=== PATIENT | female | born 1955 | race Caucasian/White ===

== ENCOUNTER → 2017-02-26 | Outpatient (CLI) | payer OTHER ==
[~2017-02-26] MED LIST: ANTIVERT/2525 MG PO; AUGMENTIN 875875 MG PO; BLACK COHOSH; LEVAQUIN750 M1 PO; MOTRIN600 MG PO; MULTIVITAMIN FO1 CAP; OMEPRAZOLE20 MG PO; ONE DAILY WOME1 EACH PO; ROBITUSSIN AC 110 ML PO; SYNTHROID25 MCG PO; VICODIN 5/500 505 MG PO
== END | disposition home or self-care (01) ==
LOC: US 07:11
DX: K76.0 Fatty (change of) liver, not elsewhere classified (principal)

== ENCOUNTER 2017-05-11 18:51 | Emergency (ER) | payer OTHER ==
[~2017-05-11] VITALS: Ht 167.6 cm; Wt 68.9 kg
[2017-05-11] MEDS ORDERED: PROAIR HFA8.5 GM INH (21:28)
[2017-05-11] MEDS ORDERED: TESSALON PERLE100 M1 PO (21:28)
== END 2017-05-11 21:13 ==
LOC: ED 18:51
DX: B34.9 Viral infection, unspecified (principal); F17.210 Nicotine dependence, cigarettes, uncomplicated; Z87.01 Personal history of pneumonia (recurrent); Z90.49 Acquired absence of other specified parts of digestive tract; Z98.890 Other specified postprocedural states

== ENCOUNTER → 2017-06-07 | Outpatient (CLI) | payer OTHER ==
[~2017-06-07] MED LIST changes: +PROAIR HFA8.5 GM INH; +TESSALON PERLE100 M1 PO
== END | disposition home or self-care (01) ==
LOC: NM 06-06 07:00
DX: R10.11 Right upper quadrant pain (principal); R11.0 Nausea

== ENCOUNTER 2018-04-17 16:32 | Inpatient (IN) | payer MEDICARE ==
[~2018-04-17] VITALS: Ht 165.1 cm; Wt 68.7 kg
--- NOTE | ~2018-04-17 | PR ---
[place], [place] PROGRESS NOTE NAME: LEXX JUDGE UNIT #: [id number] ROOM: 409 DOCTOR: ISABELL MEANS MD BIRTHDATE: [birth year] DOS: 04/19/2018 CARDIOLOGY PROGRESS NOTE SUBJECTIVE: The patient was seen in the Cardiology Department just prior to her stress test today, 04/19/2018. She is a 63-year-old woman who was hospitalized for evaluation of a mechanical fall. She did admit to episodes of chest discomfort, which have been occurring intermittently for several months. She states that these episodes can come on at rest or with minimal exertion, but not reliably so. The symptoms last 5-10 minutes and resolve spontaneously. There is nothing that she can do to bring on the symptoms or alleviate them. Since she has been in the hospital, her electrocardiograms have shown no acute changes and her troponin levels have been entirely normal. PHYSICAL EXAMINATION: VITAL SIGNS: Today her pulse is 70 and regular, blood pressure is 130/59. She is afebrile. She weighs 68.7 kg and has a body mass index of 25.2. NECK: Supple. She has no jugular distention. Carotids are full without bruits. LUNGS: Respirations are unlabored. Chest has decreased breath sounds at the bases, but is otherwise clear. There is no presacral edema or chest wall tenderness. HEART: Has a regular rhythm with an S4 gallop, but no S3. There is no significant murmur. ABDOMEN: Soft. EXTREMITIES: Showed no edema. DIAGNOSTIC STUDIES: An echocardiogram done on 04/18/2018 showed normal left ventricular size, wall motion and systolic function with ejection fraction 65%. There is stage 1 diastolic relaxation abnormality, which is normal for age. Right ventricular size and function are normal. No significant abnormality of valve structure or function is present. IMPRESSION: 1. Mechanical fall. The patient denies syncope. 2. Atypical chest pain. PLAN: We will proceed with a pharmacologic stress test today. Further recommendations will depend upon the results of the stress test. [place], [place] PROGRESS NOTE NAME: LEXX JUDGE UNIT #: [id number] ROOM: 409 DOCTOR: ISABELL MEANS MD BIRTHDATE: [birth year] ISABELL MEANS MD CM:PNTRANS [id number] ISABELL MEANS MD 04/19/18 1100 interface
--- NOTE | ~2018-04-17 | EKG ---
[place], [place] ELECTROCARDIOGRAM REPORT NAME: LEXX JUDGE UNIT #: [id number] ROOM: 409 DOCTOR: ERIC DRAFT REPORT BIRTHDATE: [birth year] [facility] Test Date: 2018-04-17 Test Time: 18:03:45 Pat Name: LEXX JUDGE Department: Room: 409 Gender: F Client Care Consultant: Sheryl Hobbs : 1955 Requested By: REJI BURNETTE Order Number: [id number] Reading MD: Kanika Smiley MD Measurements Intervals [place] Rate: 69 P: 45 GA: 186 QRS: -57 QRSD: 94 T: 38 QT: 420 QTc: 450 Interpretive Statements Sinus rhythm Abnormal R-wave progression, late transition LAHB Baseline wander in lead(s) V3 Electronically Signed On 04-18-2018 3:22:49 PST by Kanika Smiley MD CM:EKGRPT:ELECTROCARDIOGRAM REPORT [id number] REJI EVANGELISTA DRAFT REPORT REJI BURNETTE DO
[2018-04-17 16:33] VITALS: BP 154/89
[2018-04-17 17:28] LABS: BASO # 0.1 10*3/uL (0.0-0.1); BASO % 1.1 % (0.0-1.0); EOS # 0.2 10*3/uL (0.0-0.4); EOS % 2.5 % (1.0-4.0); HEMATOCRIT 37.3 % (37.0-47.0); HEMOGLOBIN 12.8 g/dl (12.0-16.0); LYMPH # 3.3 10*3/uL (1.3-4.4); MEAN CELL VOLUME 91.9 fl (81.0-99.0); MEAN CORPUSCULAR HGB 31.5 pg (27.0-31.0); MEAN CORPUSCULAR HGB CONC 34.3 g/dl (33.0-37.0); MEAN PLATELET VOLUME 9.8 fl (9.6-12.3); MONO # 0.7 10*3/uL (0.1-1.0); MONO % 7.8 % (3.0-9.0); NEUT # 4.4 10*3/uL (2.3-7.9); NEUT % 49.8 % (47.0-73.0); PLATELET COUNT AUTOMATED 255 10*3/uL (130-400); RED BLOOD COUNT 4.06 10*6/uL (4.10-5.10); RED CELL DISTRI WIDTH 12.4 % (0-14.5); WHITE BLOOD COUNT 8.8 10*3/uL (4.8-10.8)
[2018-04-17 17:54] LABS: ALBUMIN 3.8 gm/dl (3.1-4.5); ALKALINE PHOSPHATASE 54 U/L (45-117); BUN 5 mg/dl (7-24); CHLORIDE 95 mmol/L (98-107); CREATININE 0.64 mg/dL (0.55-1.02); POTASSIUM 3.4 mmol/L (3.5-5.1); SGOT/AST 19 IU/L (3-35); SGPT/ALT 18 U/L (12-78); SODIUM 130 mmol/L (136-145); TOTAL PROTEIN 7.5 gm/dL (6.4-8.2)
[2018-04-17 17:55] LABS: TROPONIN I < 0.015 ng/ml (<0.045)
[2018-04-17 18:46] LABS: BILIRUBIN NEGATIVE (NEGATIVE); BLOOD NEGATIVE (NEGATIVE); CLARITY CLEAR (CLEAR); COLOR YELLOW (YELLOW); GLUCOSE NEGATIVE (NEGATIVE); KETONE NEGATIVE (NEGATIVE); LEUKO ESTERASE NEGATIVE (NEGATIVE); NITRITE NEGATIVE (NEGATIVE); PH 5.5 (5.0-9.0); UROBILINOGEN 0.2 E.U./dl (0.2-1.0)
[2018-04-17 18:51] LABS: BACTERIA 1+
[2018-04-17 20:30] VITALS: BP 137/70
[2018-04-18] VITALS: BP 127/65
[2018-04-18 06:40] LABS: BASO # 0.1 10*3/uL (0.0-0.1); BASO % 0.9 % (0.0-1.0); EOS # 0.2 10*3/uL (0.0-0.4); EOS % 2.4 % (1.0-4.0); HEMATOCRIT 38.2 % (37.0-47.0); HEMOGLOBIN 13.2 g/dl (12.0-16.0); LYMPH % 19.3 % (27.0-41.0); MEAN CELL VOLUME 89.9 fl (81.0-99.0); MEAN CORPUSCULAR HGB 31.1 pg (27.0-31.0); MEAN CORPUSCULAR HGB CONC 34.6 g/dl (33.0-37.0); MEAN PLATELET VOLUME 10.7 fl (9.6-12.3); MONO # 0.8 10*3/uL (0.1-1.0); MONO % 7.7 % (3.0-9.0); NEUT % 69.1 % (47.0-73.0); PLATELET COUNT AUTOMATED 276 10*3/uL (130-400); RED BLOOD COUNT 4.25 10*6/uL (4.10-5.10); RED CELL DISTRI WIDTH 12.3 % (0-14.5); WHITE BLOOD COUNT 10.2 10*3/uL (4.8-10.8)
[2018-04-18 07:10] LABS: BUN 5 mg/dl (7-24); CHLORIDE 100 mmol/L (98-107); POTASSIUM 4.2 mmol/L (3.5-5.1); SODIUM 131 mmol/L (136-145)
[2018-04-18 07:11] LABS: ACT PARTIAL THROMBO TIME 26.2 SECONDS (20.8-31.5)
[2018-04-18 07:24] LABS: CHOLESTEROL 169 mg/dL (<200); CREATININE 0.58 mg/dL (0.55-1.02); FREE T4 0.71 ng/dl (0.76-1.46); HDL CHOLESTEROL 77 mg/dl (40-60); LDL CHOLESTEROL 70 mg/dL (9-159); PHOSPHOROUS 3.3 mg/dL (2.5-4.9); TRIGLYCERIDES 108 mg/dl (<150); VLDL CHOLESTEROL 22 mg/dL (6-40)
[2018-04-18 07:57] LABS: VITAMIN D, 25-HYDROXY 43.5 ng/mL (30-100)
[2018-04-18 12:00] VITALS: BP 143/62
[2018-04-18 16:00] VITALS: BP 134/70
[2018-04-18 20:00] VITALS: BP 124/63
[2018-04-19] VITALS: BP 130/59
[2018-04-19 06:44] LABS: BASO # 0.1 10*3/uL (0.0-0.1); BASO % 0.8 % (0.0-1.0); EOS # 0.2 10*3/uL (0.0-0.4); EOS % 3.2 % (1.0-4.0); HEMATOCRIT 40.7 % (37.0-47.0); HEMOGLOBIN 13.6 g/dl (12.0-16.0); LYMPH # 2.4 10*3/uL (1.3-4.4); MEAN CORPUSCULAR HGB 31.1 pg (27.0-31.0); MEAN CORPUSCULAR HGB CONC 33.4 g/dl (33.0-37.0); MEAN PLATELET VOLUME 10.9 fl (9.6-12.3); MONO # 0.9 10*3/uL (0.1-1.0); MONO % 11.6 % (3.0-9.0); NEUT # 3.8 10*3/uL (2.3-7.9); NEUT % 51.9 % (47.0-73.0); PLATELET COUNT AUTOMATED 272 10*3/uL (130-400); RED BLOOD COUNT 4.37 10*6/uL (4.10-5.10); RED CELL DISTRI WIDTH 12.6 % (0-14.5); WHITE BLOOD COUNT 7.4 10*3/uL (4.8-10.8)
[2018-04-19 06:47] LABS: MEAN CELL VOLUME 93.1 fl (81.0-99.0)
[2018-04-19 06:59] LABS: CHLORIDE 107 mmol/L (98-107); SODIUM 139 mmol/L (136-145)
[2018-04-19 07:12] LABS: ALBUMIN 3.6 gm/dl (3.1-4.5); ALKALINE PHOSPHATASE 54 U/L (45-117); BUN 9 mg/dl (7-24); SGOT/AST 10 IU/L (3-35); SGPT/ALT 19 U/L (12-78); TOTAL PROTEIN 7.3 gm/dL (6.4-8.2)
[2018-04-19 12:00] VITALS: BP 119/56
[2018-04-19 16:00] VITALS: BP 115/65
[2018-04-19 20:00] VITALS: BP 140/71
[2018-04-20] VITALS: BP 127/65
[2018-04-20 06:27] LABS: BASO # 0.1 10*3/uL (0.0-0.1); BASO % 1.2 % (0.0-1.0); EOS # 0.5 10*3/uL (0.0-0.4); EOS % 6.3 % (1.0-4.0); HEMOGLOBIN 13.1 g/dl (12.0-16.0); LYMPH # 2.6 10*3/uL (1.3-4.4); LYMPH % 32.3 % (27.0-41.0); MEAN CELL VOLUME 94.3 fl (81.0-99.0); MEAN CORPUSCULAR HGB 30.9 pg (27.0-31.0); MEAN CORPUSCULAR HGB CONC 32.8 g/dl (33.0-37.0); MEAN PLATELET VOLUME 11.1 fl (9.6-12.3); MONO % 12.5 % (3.0-9.0); NEUT # 3.8 10*3/uL (2.3-7.9); NEUT % 47.1 % (47.0-73.0); PLATELET COUNT AUTOMATED 250 10*3/uL (130-400); RED BLOOD COUNT 4.24 10*6/uL (4.10-5.10); RED CELL DISTRI WIDTH 12.8 % (0-14.5); WHITE BLOOD COUNT 8.1 10*3/uL (4.8-10.8)
[2018-04-20 06:48] LABS: ALBUMIN 3.7 gm/dl (3.1-4.5); ALKALINE PHOSPHATASE 54 U/L (45-117); BUN 12 mg/dl (7-24); CHLORIDE 105 mmol/L (98-107); CREATININE 0.72 mg/dL (0.55-1.02); POTASSIUM 4.1 mmol/L (3.5-5.1); SGOT/AST 16 IU/L (3-35); SGPT/ALT 19 U/L (12-78); SODIUM 137 mmol/L (136-145); TOTAL PROTEIN 6.9 gm/dL (6.4-8.2)
== END 2018-04-20 08:35 | disposition left against medical advice (07) | DRG 605 ==
LOC: ED 16:32 → 4E 19:07 → EDHOLD 19:07 → 4E 19:59
PROVIDERS: Internal Medicine; Internal Medicine Nephrology
PROC: 3E073KZ Introduction of Other Diagnostic Substance into Coronary Artery, Percutaneous Approach (ICD-10-PCS; principal; 2018-04-19)
PROC: 4A02XM4 Measurement of Cardiac Total Activity, External Approach (ICD-10-PCS; principal; 2018-04-19)
DX: S20.212A Contusion of left front wall of thorax, initial encounter (principal); E87.1 Hypo-osmolality and hyponatremia; E83.51 Hypocalcemia; E87.6 Hypokalemia; E87.8 Other disorders of electrolyte and fluid balance, not elsewhere classified; E66.3 Overweight; R07.89 Other chest pain; Z53.21 Procedure and treatment not carried out due to patient leaving prior to being seen by health care provider; F10.10 Alcohol abuse, uncomplicated; F17.210 Nicotine dependence, cigarettes, uncomplicated; E03.9 Hypothyroidism, unspecified; W18.30XA Fall on same level, unspecified, initial encounter; Y93.89 Activity, other specified; Y92.098 Other place in other non-institutional residence as the place of occurrence of the external cause; Y99.8 Other external cause status; Z90.49 Acquired absence of other specified parts of digestive tract; Z84.1 Family history of disorders of kidney and ureter; Z83.3 Family history of diabetes mellitus; Z80.3 Family history of malignant neoplasm of breast; Z80.8 Family history of malignant neoplasm of other organs or systems; Z71.6 Tobacco abuse counseling; Z79.899 Other long term (current) drug therapy

== ENCOUNTER 2019-03-06 09:22 | Emergency (ER) | payer MEDICARE ==
[~2019-03-06] VITALS: Wt 68.0 kg
[2019-03-06 10:17] LABS: BASO # 0.1 10*3/uL (0.0-0.1); BASO % 0.6 % (0.0-1.0); EOS # 0.1 10*3/uL (0.0-0.4); HEMATOCRIT 40.5 % (37.0-47.0); HEMOGLOBIN 13.4 g/dl (12.0-16.0); LYMPH # 2.8 10*3/uL (1.3-4.4); LYMPH % 29.9 % (27.0-41.0); MEAN CELL VOLUME 93.5 fl (81.0-99.0); MEAN CORPUSCULAR HGB 30.9 pg (27.0-31.0); MEAN CORPUSCULAR HGB CONC 33.1 g/dl (33.0-37.0); MEAN PLATELET VOLUME 10.8 fl (9.6-12.3); MONO # 0.7 10*3/uL (0.1-1.0); NEUT # 5.6 10*3/uL (2.3-7.9); NEUT % 60.7 % (47.0-73.0); PLATELET COUNT AUTOMATED 332 10*3/uL (130-400); RED BLOOD COUNT 4.33 10*6/uL (4.10-5.10); RED CELL DISTRI WIDTH 11.9 % (0-14.5); WHITE BLOOD COUNT 9.3 10*3/uL (4.8-10.8)
[2019-03-06 10:20] LABS: ALBUMIN 4.3 gm/dl (3.1-4.5); ALKALINE PHOSPHATASE 84 U/L (45-117); BUN 8 mg/dl (7-24); CHLORIDE 104 mmol/L (98-107); LIPASE 109 U/L (73-393); POTASSIUM 3.7 mmol/L (3.5-5.1); SGOT/AST 13 IU/L (3-35); SGPT/ALT 18 U/L (12-78); SODIUM 134 mmol/L (136-145); TOTAL PROTEIN 8.3 gm/dL (6.4-8.2)
[2019-03-06] MEDS ORDERED: CIPRO500 MG PO (12:56)
[2019-03-06] MEDS ORDERED: FLAGYL500 MG PO (12:56)
== END 2019-03-06 13:07 | disposition home or self-care (01) ==
LOC: ED 09:22
PROVIDERS: Emergency Medicine
DX: K57.32 Diverticulitis of large intestine without perforation or abscess without bleeding (principal); R30.0 Dysuria; M54.5 Low back pain; M25.551 Pain in right hip; R11.0 Nausea; E03.9 Hypothyroidism, unspecified; G40.909 Epilepsy, unspecified, not intractable, without status epilepticus; F17.200 Nicotine dependence, unspecified, uncomplicated

== ENCOUNTER 2019-03-14 11:14 | Inpatient (IN) | payer MEDICARE ==
[~2019-03-14] VITALS: Ht 167.6 cm; Wt 66.0 kg
--- NOTE | ~2019-03-14 | CON ---
[place], [place] REPORT OF CONSULTATION NAME: LEXX JUDGE UNIT #: [id number] ROOM: 412 DOCTOR: LENIN PEREZ MD BIRTHDATE: [birth year] DOS: 03/14/2019 HISTORY OF PRESENT ILLNESS: A 64-year-old patient who has presented with chief complaint of abdominal pain. Apparently, she has been on a trial of Flagyl and ciprofloxacin. She develops diarrhea. She has stopped taking the medication she subsequently developed dysuria and polyuria at the same time. She had to be admitted for definitive evaluation through the Emergency Room, was suspected that she may have a UTI; therefore a panel of blood work was done. White blood cell at that time was 11, H and H of 13 and 39, differential within normal limit. Comprehensive metabolic panel: GFR greater than 60. Electrolyte balance, liver function test normal. Urinalysis, trace of bacteria was seen and some blood trace in the urine. Lactic acid was normal. PAST MEDICAL HISTORY: Associated with diverticulosis, diverticulitis, and hypothyroidism. PAST SURGICAL HISTORY: Appendectomy, cataracts, and ovarian cystectomy. SOCIAL HISTORY: About 6-pack of beer daily and 1 pack smoker. FAMILY HISTORY: Noncontributory. ALLERGIES: No known medications. REVIEW OF SYSTEMS: HEENT: Denies double vision, blurred vision. RESPIRATORY: Denies acute shortness of breath. CARDIOVASCULAR: Denies acute chest pain. DIGESTIVE SYSTEM: Abdominal pain. GENITOURINARY: Frequency of urine and dysuria. PHYSICAL EXAMINATION: GENERAL: Appears to be stable, nontoxic patient. HEENT: Head normocephalic, nontraumatic. Mouth and buccal mucosa, benign. NECK: Supple, no thyromegaly, no cervical lymphadenopathy. CHEST: Symmetric anatomy, equal expansion. No wheeze, no rhonchi. Chronic obstructive pulmonary disease pattern. HEART: Normal sinus rhythm, no gallop, no murmur. ABDOMEN: Soft. No hepato-organomegaly, some tenderness particularly left lower quadrant. No rebound effect of concern. EXTREMITIES: No cyanosis, no pedal edema. NEUROLOGIC: Alert, oriented to time, place, and person. Labs reviewed. Records reviewed. Data reviewed. IMPRESSION: Diverticulosis, subclinical diverticulitis, possible urinary tract infection, history of hypothyroidism, and alcohol and nicotine dependency. PLAN AND DISCUSSION: We are going to continue with supportive management at the present time, continuation with Unasyn therapy and antibiotic for UTI. Workup [place], [place] REPORT OF CONSULTATION NAME: LEXX JUDGE UNIT #: [id number] ROOM: [facility] DOCTOR: ANA NUÑEZ,LENIN BIRTHDATE: [birth year] in progress, hydration, and supportive management. LENIN PEREZ MD CM:CONSTR:REPORT OF CONSULTATION [id number] 03/15/19 0030 interface
--- NOTE | ~2019-03-14 | PR ---
[place], [place] PROGRESS NOTE [id number] UNIT #: [id number] ROOM: 412 DOCTOR: LENIN PEREZ MD BIRTHDATE: [birth year] DOS: 03/17/2019 GASTROENDOSCOPIC REPORT SUBJECTIVE: The patient has presented with a chief complaint of abdominal pain and diverticulitis. Under therapy with antibiotic at the present time. She had a sonographic study of the abdomen today done, gallbladder, no stones, common bile duct 0.9. Liver, pancreas, spleen, kidneys are all within normal limit. Blood pressure, no acute pathology. Urine culture is normal. CT scan of the abdomen and pelvis, prominent gallbladder, diverticulosis all known. REVIEW OF SYSTEMS: HEENT: Denies double vision, blurred vision. RESPIRATORY: Denies acute shortness of breath. CARDIOVASCULAR: Denies acute chest pain. DIGESTIVE SYSTEM: Left lower quadrant pain with improvement. PHYSICAL EXAMINATION: VITAL SIGNS: Stable. HEENT: Within normal limit. NECK: Supple, no thyromegaly, no cervical lymphadenopathy. CHEST: Symmetric anatomy, equal expansion. No wheeze, no rhonchi. HEART: Normal sinus rhythm, no gallop, no murmur. ABDOMEN: Soft. No hepato-organomegaly. Bowel sounds present. No tenderness. EXTREMITIES: No cyanosis, no pedal edema. NEUROLOGIC: Alert and oriented x 3. LABORATORY DATA: Labs reviewed. Records reviewed. IMPRESSION: Diverticulitis. We will continue with one week of antibiotic therapy as outpatient, future outpatient colonoscopy. LENIN PERZE MD CM:PNTRANS [id number] LENIN PEREZ MD 03/18/19 0258 interface
[~2019-03-14 11:14] MED LIST changes: -FLUCONAZOLE100 MG PO
[2019-03-14 11:18] VITALS: BP 167/85
[2019-03-14 11:51] LABS: BASO # 0.1 10*3/uL (0.0-0.1); EOS # 0.2 10*3/uL (0.0-0.4); EOS % 1.7 % (1.0-4.0); HEMATOCRIT 39.7 % (37.0-47.0); HEMOGLOBIN 13.2 g/dl (12.0-16.0); LYMPH # 3.3 10*3/uL (1.3-4.4); MEAN CELL VOLUME 94.5 fl (81.0-99.0); MEAN CORPUSCULAR HGB 31.4 pg (27.0-31.0); MEAN CORPUSCULAR HGB CONC 33.2 g/dl (33.0-37.0); MEAN PLATELET VOLUME 10.1 fl (9.6-12.3); MONO # 1.1 10*3/uL (0.1-1.0); MONO % 9.7 % (3.0-9.0); NEUT # 6.5 10*3/uL (2.3-7.9); NEUT % 57.7 % (47.0-73.0); PLATELET COUNT AUTOMATED 315 10*3/uL (130-400); RED CELL DISTRI WIDTH 12.3 % (0-14.5); WHITE BLOOD COUNT 11.3 10*3/uL (4.8-10.8)
[2019-03-14 12:19] LABS: ALKALINE PHOSPHATASE 62 U/L (45-117); BUN 6 mg/dl (7-24); CHLORIDE 104 mmol/L (98-107); CREATININE 0.73 mg/dL (0.55-1.02); POTASSIUM 3.7 mmol/L (3.5-5.1); SGOT/AST 20 IU/L (3-35); SGPT/ALT 22 U/L (12-78); SODIUM 135 mmol/L (136-145); TOTAL PROTEIN 7.5 gm/dL (6.4-8.2)
[2019-03-14 12:48] LABS: BILIRUBIN NEGATIVE (NEGATIVE); BLOOD TRACE-INTACT (NEGATIVE); CLARITY SL CLOUDY (CLEAR); COLOR YELLOW (YELLOW); GLUCOSE NEGATIVE (NEGATIVE); KETONE NEGATIVE (NEGATIVE); LEUKO ESTERASE TRACE (NEGATIVE); NITRITE NEGATIVE (NEGATIVE); SPECIFIC GRAVITY <= 1.005 (1.005-1.030); UROBILINOGEN 0.2 E.U./dl (0.2-1.0)
[2019-03-14 13:14] LABS: BACTERIA TRACE
[2019-03-14 13:15] VITALS: BP 167/85; BP 172/83
[2019-03-14 16:00] VITALS: BP 130/63
[2019-03-14 20:00] VITALS: BP 140/70
[2019-03-15] VITALS: BP 124/81
[2019-03-15 06:12] LABS: BASO # 0.1 10*3/uL (0.0-0.1); BASO % 1.1 % (0.0-1.0); EOS # 0.3 10*3/uL (0.0-0.4); EOS % 3.4 % (1.0-4.0); HEMATOCRIT 36.3 % (37.0-47.0); HEMOGLOBIN 11.9 g/dl (12.0-16.0); LYMPH # 2.6 10*3/uL (1.3-4.4); LYMPH % 29.7 % (27.0-41.0); MEAN CELL VOLUME 94.8 fl (81.0-99.0); MEAN CORPUSCULAR HGB 31.1 pg (27.0-31.0); MEAN CORPUSCULAR HGB CONC 32.8 g/dl (33.0-37.0); MONO # 0.8 10*3/uL (0.1-1.0); MONO % 9.3 % (3.0-9.0); NEUT # 4.9 10*3/uL (2.3-7.9); NEUT % 55.4 % (47.0-73.0); PLATELET COUNT AUTOMATED 275 10*3/uL (130-400); RED BLOOD COUNT 3.83 10*6/uL (4.10-5.10); RED CELL DISTRI WIDTH 12.3 % (0-14.5); WHITE BLOOD COUNT 8.9 10*3/uL (4.8-10.8)
[2019-03-15 06:40] LABS: ALBUMIN 3.2 gm/dl (3.1-4.5); ALKALINE PHOSPHATASE 47 U/L (45-117); BUN 4 mg/dl (7-24); CHLORIDE 110 mmol/L (98-107); CHOLESTEROL 128 mg/dL (<200); CREATININE 0.74 mg/dL (0.55-1.02); HDL CHOLESTEROL 55 mg/dl (40-60); LDL CHOLESTEROL 57 mg/dL (9-159); PHOSPHOROUS 3.8 mg/dL (2.5-4.9); POTASSIUM 3.6 mmol/L (3.5-5.1); SGOT/AST 15 IU/L (3-35); SGPT/ALT 19 U/L (12-78); SODIUM 139 mmol/L (136-145); TOTAL PROTEIN 6.2 gm/dL (6.4-8.2); TRIGLYCERIDES 81 mg/dl (<150); VLDL CHOLESTEROL 16 mg/dL (6-40)
[2019-03-15 06:54] LABS: ACT PARTIAL THROMBO TIME 26.8 SECONDS (20.0-32.1)
[2019-03-15 08:00] VITALS: BP 98/48
[2019-03-15 08:29] LABS: VITAMIN D, 25-HYDROXY 43.4 ng/mL (30-100)
[2019-03-15 12:00] VITALS: BP 151/72
[2019-03-15 16:00] VITALS: BP 131/57
[2019-03-15 20:00] VITALS: BP 149/70
[2019-03-16] VITALS: BP 125/66
[2019-03-16 06:20] LABS: BASO # 0.1 10*3/uL (0.0-0.1); BASO % 1.2 % (0.0-1.0); EOS # 0.3 10*3/uL (0.0-0.4); EOS % 3.7 % (1.0-4.0); HEMATOCRIT 36.4 % (37.0-47.0); HEMOGLOBIN 12.2 g/dl (12.0-16.0); LYMPH # 2.1 10*3/uL (1.3-4.4); LYMPH % 23.4 % (27.0-41.0); MEAN CELL VOLUME 93.1 fl (81.0-99.0); MEAN CORPUSCULAR HGB 31.2 pg (27.0-31.0); MEAN CORPUSCULAR HGB CONC 33.5 g/dl (33.0-37.0); MEAN PLATELET VOLUME 10.9 fl (9.6-12.3); MONO # 0.9 10*3/uL (0.1-1.0); MONO % 9.6 % (3.0-9.0); NEUT # 5.4 10*3/uL (2.3-7.9); NEUT % 61.3 % (47.0-73.0); PLATELET COUNT AUTOMATED 296 10*3/uL (130-400); RED BLOOD COUNT 3.91 10*6/uL (4.10-5.10); RED CELL DISTRI WIDTH 12.4 % (0-14.5); WHITE BLOOD COUNT 8.9 10*3/uL (4.8-10.8)
[2019-03-16 06:26] LABS: BUN 2 mg/dl (7-24); CHLORIDE 111 mmol/L (98-107); CREATININE 0.77 mg/dL (0.55-1.02); POTASSIUM 3.8 mmol/L (3.5-5.1); SODIUM 144 mmol/L (136-145)
[2019-03-16 08:00] VITALS: BP 148/70
[2019-03-16 12:00] VITALS: BP 146/68
[2019-03-16 16:00] VITALS: BP 139/88
[2019-03-16 20:00] VITALS: BP 150/71
[2019-03-17] VITALS: BP 136/69
[2019-03-17 02:30] VITALS: BP 143/70
[2019-03-17 06:26] LABS: BASO # 0.1 10*3/uL (0.0-0.1); BASO % 0.8 % (0.0-1.0); EOS # 0.4 10*3/uL (0.0-0.4); EOS % 4.4 % (1.0-4.0); HEMATOCRIT 37.5 % (37.0-47.0); HEMOGLOBIN 12.2 g/dl (12.0-16.0); LYMPH % 20.8 % (27.0-41.0); MEAN CELL VOLUME 94.7 fl (81.0-99.0); MEAN CORPUSCULAR HGB 30.8 pg (27.0-31.0); MEAN CORPUSCULAR HGB CONC 32.5 g/dl (33.0-37.0); MEAN PLATELET VOLUME 11.4 fl (9.6-12.3); MONO # 0.9 10*3/uL (0.1-1.0); MONO % 9.5 % (3.0-9.0); NEUT # 6.1 10*3/uL (2.3-7.9); NEUT % 63.7 % (47.0-73.0); PLATELET COUNT AUTOMATED 298 10*3/uL (130-400); RED BLOOD COUNT 3.96 10*6/uL (4.10-5.10); RED CELL DISTRI WIDTH 12.4 % (0-14.5); WHITE BLOOD COUNT 9.6 10*3/uL (4.8-10.8)
[2019-03-17 06:28] LABS: ALBUMIN 3.4 gm/dl (3.1-4.5); ALKALINE PHOSPHATASE 51 U/L (45-117); BUN 10 mg/dl (7-24); CHLORIDE 110 mmol/L (98-107); CREATININE 0.82 mg/dL (0.55-1.02); FREE T4 0.92 ng/dl (0.76-1.46); POTASSIUM 3.7 mmol/L (3.5-5.1); SGOT/AST 14 IU/L (3-35); SGPT/ALT 16 U/L (12-78); SODIUM 140 mmol/L (136-145); TOTAL PROTEIN 6.7 gm/dL (6.4-8.2)
[2019-03-17 08:00] VITALS: BP 150/76
[2019-03-17 12:00] VITALS: BP 137/66
[2019-03-17 16:00] VITALS: BP 150/75
[2019-03-17 20:00] VITALS: BP 150/77
[2019-03-18] VITALS: BP 158/74; BP 158/79
[2019-03-18 08:00] VITALS: BP 134/66
[2019-03-18] MEDS ORDERED: FLAGYL500 MG PO (11:29)
[2019-03-18] MEDS ORDERED: CIPRO500 MG PO (11:29)
[2019-03-18] MEDS ORDERED: FLUCONAZOLE100 MG PO (11:29)
== END 2019-03-18 13:04 | disposition home or self-care (01) | DRG 690 ==
LOC: ED 11:14 → EDHOLD 12:19 → 4E 12:19
PROVIDERS: Emergency Medicine; Family Medicine; Hospitalist; ADMIT Family Medicine
DX: N39.0 Urinary tract infection, site not specified (principal); E87.1 Hypo-osmolality and hyponatremia; E44.0 Moderate protein-calorie malnutrition; F17.210 Nicotine dependence, cigarettes, uncomplicated; D64.9 Anemia, unspecified; Z96.1 Presence of intraocular lens; K57.30 Diverticulosis of large intestine without perforation or abscess without bleeding; K29.70 Gastritis, unspecified, without bleeding; E03.9 Hypothyroidism, unspecified; K83.8 Other specified diseases of biliary tract; F10.20 Alcohol dependence, uncomplicated; L27.0 Generalized skin eruption due to drugs and medicaments taken internally; T36.0X5A Adverse effect of penicillins, initial encounter; Y92.238 Other place in hospital as the place of occurrence of the external cause; Z71.6 Tobacco abuse counseling; Z91.81 History of falling; Z90.49 Acquired absence of other specified parts of digestive tract; Z98.49 Cataract extraction status, unspecified eye; Z98.51 Tubal ligation status; Z84.1 Family history of disorders of kidney and ureter; Z83.3 Family history of diabetes mellitus; Z80.3 Family history of malignant neoplasm of breast; Z80.8 Family history of malignant neoplasm of other organs or systems; Z82.49 Family history of ischemic heart disease and other diseases of the circulatory system; Z68.23 Body mass index [BMI] 23.0-23.9, adult; R31.9 Hematuria, unspecified

== ENCOUNTER → 2019-03-14 | Outpatient (CLI) | payer MEDICARE ==
[~2019-03-14] MED LIST changes: +CIPRO500 MG PO; +FLAGYL500 MG PO; +FLUCONAZOLE100 MG PO
== END | disposition home or self-care (01) ==
LOC: RESCLI 01:35
DX: K57.92 Diverticulitis of intestine, part unspecified, without perforation or abscess without bleeding (principal); N39.0 Urinary tract infection, site not specified; Z78.9 Other specified health status; Z79.899 Other long term (current) drug therapy; Z88.8 Allergy status to other drugs, medicaments and biological substances

== ENCOUNTER → 2019-04-03 | Outpatient (CLI) | payer MEDICARE ==
[~2019-04-03] MED LIST changes: +FLUCONAZOLE100 MG PO
--- NOTE | ~2019-04-03 | EKG ---
[place], [place] ELECTROCARDIOGRAM REPORT NAME: LEXX JUDGE UNIT #: [id number] ROOM: DOCTOR: EPIPHANY DRAFT REPORT BIRTHDATE: [birth year] [facility] Test Date: 2019-04-03 Test Time: 10:49:50 Pat Name: LEXX JUDGE Department: Room: Gender: F Wedding Planner: Chelsea Saleh : 1955 Requested By: KIZZY IRVING Order Number: [id number] Reading MD: Weston Avila MD Measurements Intervals [place] Rate: 78 P: 34 LA: 167 QRS: -52 QRSD: 80 T: 6 QT: 374 QTc: 426 Interpretive Statements Sinus rhythm Abnormal R-wave progression, late transition Inferior infarct, old Compared to ECG 04/17/2018 18:03:45 Myocardial infarct finding now present Electronically Signed On 04-08-2019 9:08:17 PST by Weston Avila MD CM:EKGRPT:ELECTROCARDIOGRAM REPORT [id number] KIZZY REYES DRAFT REPORT KIZZY IRVING MD
[2019-04-03 10:41] LABS: BILIRUBIN NEGATIVE (NEGATIVE); BLOOD NEGATIVE (NEGATIVE); CLARITY CLEAR (CLEAR); COLOR YELLOW (YELLOW); GLUCOSE NEGATIVE (NEGATIVE); KETONE NEGATIVE (NEGATIVE); LEUKO ESTERASE NEGATIVE (NEGATIVE); NITRITE NEGATIVE (NEGATIVE); SPECIFIC GRAVITY <= 1.005 (1.005-1.030); UROBILINOGEN 0.2 E.U./dl (0.2-1.0)
[2019-04-03 10:54] LABS: BACTERIA 1+
== END | disposition home or self-care (01) ==
LOC: RESCLI 01:06
PROVIDERS: Internal Medicine Nephrology
DX: Z09 Encounter for follow-up examination after completed treatment for conditions other than malignant neoplasm (principal); R10.9 Unspecified abdominal pain; N94.9 Unspecified condition associated with female genital organs and menstrual cycle; J45.20 Mild intermittent asthma, uncomplicated; K57.90 Diverticulosis of intestine, part unspecified, without perforation or abscess without bleeding; G89.29 Other chronic pain; Z79.899 Other long term (current) drug therapy; Z88.8 Allergy status to other drugs, medicaments and biological substances

== ENCOUNTER → 2019-04-21 | Outpatient (CLI) | payer MEDICARE | END | disposition home or self-care (01) | LOC: RESCLI 01:37 | DX: J45.909 Unspecified asthma, uncomplicated (principal); G89.29 Other chronic pain; R10.9 Unspecified abdominal pain; R03.0 Elevated blood-pressure reading, without diagnosis of hypertension; R30.0 Dysuria; E03.9 Hypothyroidism, unspecified; F17.200 Nicotine dependence, unspecified, uncomplicated; Z79.899 Other long term (current) drug therapy; Z71.6 Tobacco abuse counseling; Z71.41 Alcohol abuse counseling and surveillance of alcoholic ==

== ENCOUNTER → 2019-05-26 | Outpatient (CLI) | payer MEDICARE | END | disposition home or self-care (01) | LOC: US 05-07 13:30 | DX: R10.2 Pelvic and perineal pain (principal) ==

== ENCOUNTER → 2019-05-28 | Outpatient (CLI) | payer MEDICARE | END | disposition home or self-care (01) | LOC: RESCLI 00:28 | DX: G89.29 Other chronic pain (principal); I10 Essential (primary) hypertension; J45.50 Severe persistent asthma, uncomplicated; Z72.0 Tobacco use; Z71.6 Tobacco abuse counseling; Z79.899 Other long term (current) drug therapy; Z90.89 Acquired absence of other organs ==

== ENCOUNTER → 2019-07-03 | Outpatient (CLI) | payer MEDICARE ==
[2019-07-03 09:36] LABS: BASO # 0.1 10*3/uL (0.0-0.1); BASO % 1.3 % (0.0-1.0); EOS # 0.4 10*3/uL (0.0-0.4); EOS % 5.3 % (1.0-4.0); HEMATOCRIT 42.9 % (37.0-47.0); LYMPH # 2.9 10*3/uL (1.3-4.4); LYMPH % 35.1 % (27.0-41.0); MEAN CELL VOLUME 93.3 fl (81.0-99.0); MEAN CORPUSCULAR HGB 30.4 pg (27.0-31.0); MEAN CORPUSCULAR HGB CONC 32.6 g/dl (33.0-37.0); MEAN PLATELET VOLUME 10.6 fl (9.6-12.3); MONO # 0.7 10*3/uL (0.1-1.0); MONO % 8.8 % (3.0-9.0); NEUT % 49.1 % (47.0-73.0); PLATELET COUNT AUTOMATED 298 10*3/uL (130-400); RED CELL DISTRI WIDTH 12.8 % (0-14.5); WHITE BLOOD COUNT 8.2 10*3/uL (4.8-10.8)
[2019-07-03 10:11] LABS: CHLORIDE 104 mmol/L (98-107); POTASSIUM 3.7 mmol/L (3.5-5.1); SODIUM 137 mmol/L (136-145)
[2019-07-03 10:28] LABS: ALBUMIN 4.4 gm/dl (3.1-4.5); ALKALINE PHOSPHATASE 71 U/L (45-117); BUN 8 mg/dl (7-24); CREATININE 0.78 mg/dL (0.55-1.02); SGOT/AST 15 IU/L (3-35); SGPT/ALT 22 U/L (12-78); TOTAL PROTEIN 7.9 gm/dL (6.4-8.2)
[2019-07-03 10:45] LABS: FREE T4 0.74 ng/dl (0.76-1.46)
== END | disposition home or self-care (01) ==
LOC: RESCLI 00:20
PROVIDERS: Internal Medicine
DX: E03.9 Hypothyroidism, unspecified (principal); I10 Essential (primary) hypertension; J45.50 Severe persistent asthma, uncomplicated; R00.2 Palpitations; R61 Generalized hyperhidrosis; R55 Syncope and collapse; R07.9 Chest pain, unspecified; K57.30 Diverticulosis of large intestine without perforation or abscess without bleeding; Z72.0 Tobacco use; Z71.6 Tobacco abuse counseling; Z90.89 Acquired absence of other organs; Z98.49 Cataract extraction status, unspecified eye; Z98.890 Other specified postprocedural states

== ENCOUNTER → 2019-07-07 | Outpatient (CLI) | payer MEDICARE | LOC: CARD 07-03 09:53 | DX: R00.2 Palpitations (principal) ==

== ENCOUNTER → 2019-12-09 | Outpatient (CLI) | payer MEDICARE | END | disposition home or self-care (01) | LOC: RESCLI 02:33 | DX: I10 Essential (primary) hypertension (principal); E03.9 Hypothyroidism, unspecified; G89.29 Other chronic pain; J45.909 Unspecified asthma, uncomplicated; F17.210 Nicotine dependence, cigarettes, uncomplicated; Z11.59 Encounter for screening for other viral diseases; Z12.31 Encounter for screening mammogram for malignant neoplasm of breast; Z12.4 Encounter for screening for malignant neoplasm of cervix; Z79.899 Other long term (current) drug therapy ==

== ENCOUNTER → 2019-12-22 | Outpatient (CLI) | payer MEDICARE | END | disposition home or self-care (01) | LOC: MAMMO 00:29 | DX: Z12.31 Encounter for screening mammogram for malignant neoplasm of breast (principal) ==

== ENCOUNTER → 2020-04-27 | Outpatient (CLI) | payer MEDICARE | END | disposition home or self-care (01) | LOC: RESCLI 04-26 00:35 | PROVIDERS: ATTEND Emergency Medicine | DX: G89.29 Other chronic pain (principal); J45.909 Unspecified asthma, uncomplicated; I10 Essential (primary) hypertension; J45.50 Severe persistent asthma, uncomplicated; E03.9 Hypothyroidism, unspecified; I35.8 Other nonrheumatic aortic valve disorders; F17.210 Nicotine dependence, cigarettes, uncomplicated; Z79.899 Other long term (current) drug therapy; Z98.890 Other specified postprocedural states ==

== ENCOUNTER → 2020-10-19 | Outpatient (CLI) | payer MEDICARE ==
[2020-10-19 10:09] LABS: BASO # 0.1 10*3/uL (0.0-0.1); BASO % 1.1 % (0.0-1.0); EOS # 0.2 10*3/uL (0.0-0.4); EOS % 2.2 % (1.0-4.0); HEMATOCRIT 42.9 % (37.0-47.0); LYMPH # 2.5 10*3/uL (1.3-4.4); LYMPH % 27.6 % (27.0-41.0); MEAN CELL VOLUME 92.9 fl (81.0-99.0); MEAN CORPUSCULAR HGB CONC 33.3 g/dl (33.0-37.0); MEAN PLATELET VOLUME 10.7 fl (9.6-12.3); MONO # 0.9 10*3/uL (0.1-1.0); MONO % 9.6 % (3.0-9.0); NEUT # 5.4 10*3/uL (2.3-7.9); PLATELET COUNT AUTOMATED 311 10*3/uL (130-400); RED BLOOD COUNT 4.62 10*6/uL (4.10-5.10); RED CELL DISTRI WIDTH 12.9 % (0-14.5); WHITE BLOOD COUNT 9.2 10*3/uL (4.8-10.8)
[2020-10-19 10:39] LABS: ALBUMIN 4.3 gm/dl (3.1-4.5); BUN 7 mg/dl (7-24); CHLORIDE 102 mmol/L (98-107); CREATININE 0.69 mg/dL (0.55-1.02); SGOT/AST 16 IU/L (3-35); SGPT/ALT 18 U/L (12-78); SODIUM 134 mmol/L (136-145)
[2020-10-19 10:48] LABS: ALKALINE PHOSPHATASE 69 U/L (45-117)
== END | disposition home or self-care (01) ==
LOC: RESCLI 00:31
PROVIDERS: ATTEND Student in an Organized Health Care Education/Training Program
DX: J45.909 Unspecified asthma, uncomplicated (principal); I10 Essential (primary) hypertension; E03.9 Hypothyroidism, unspecified; F17.200 Nicotine dependence, unspecified, uncomplicated; Z13.820 Encounter for screening for osteoporosis; Z79.899 Other long term (current) drug therapy; Z98.890 Other specified postprocedural states

== ENCOUNTER → 2020-11-01 | Outpatient (CLI) | payer MEDICARE | END | disposition home or self-care (01) | LOC: RAD 04:36 | PROVIDERS: ATTEND Internal Medicine Nephrology | DX: Z13.820 Encounter for screening for osteoporosis (principal); M85.89 Other specified disorders of bone density and structure, multiple sites; Z78.0 Asymptomatic menopausal state ==

== ENCOUNTER → 2021-01-11 | Outpatient (CLI) | payer MEDICARE | END | disposition home or self-care (01) | LOC: RESCLI 00:29 | PROVIDERS: ATTEND Internal Medicine | DX: J45.909 Unspecified asthma, uncomplicated (principal); I10 Essential (primary) hypertension; E03.9 Hypothyroidism, unspecified; M85.852 Other specified disorders of bone density and structure, left thigh; Z79.899 Other long term (current) drug therapy; Z98.890 Other specified postprocedural states ==

== ENCOUNTER → 2021-04-05 | Outpatient (CLI) | payer MEDICARE ==
[2021-04-05 10:39] LABS: BILIRUBIN Negative (Negative); BLOOD Negative (Negative); CLARITY Clear (Clear); COLOR Yellow (Yellow); GLUCOSE Negative (Negative); KETONE Negative (Negative); LEUKO ESTERASE 1+ (Negative); NITRITE Negative (Negative); PH 6.5 (4.5-8.0); UROBILINOGEN 0.2 E.U./dl (0.0-1.0)
[2021-04-05 10:46] LABS: BASO # 0.1 10*3/uL (0.0-0.1); BASO % 1.5 % (0.0-1.0); EOS # 0.6 10*3/uL (0.0-0.4); EOS % 6.9 % (1.0-4.0); HEMATOCRIT 41.7 % (37.0-47.0); LYMPH # 2.9 10*3/uL (1.3-4.4); MEAN CELL VOLUME 93.9 fl (81.0-99.0); MEAN CORPUSCULAR HGB 30.6 pg (27.0-31.0); MEAN CORPUSCULAR HGB CONC 32.6 g/dl (33.0-37.0); MEAN PLATELET VOLUME 11.4 fl (9.6-12.3); MONO # 0.7 10*3/uL (0.1-1.0); MONO % 7.9 % (3.0-9.0); NEUT # 4.9 10*3/uL (2.3-7.9); NEUT % 52.2 % (47.0-73.0); PLATELET COUNT AUTOMATED 296 10*3/uL (130-400); RED BLOOD COUNT 4.44 10*6/uL (4.10-5.10); RED CELL DISTRI WIDTH 13.1 % (0-14.5); WHITE BLOOD COUNT 9.3 10*3/uL (4.8-10.8)
[2021-04-05 10:49] LABS: RBC 0-2 rbc/hpf (0-2)
[2021-04-05 10:57] LABS: ALBUMIN 4.1 gm/dl (3.1-4.5); BUN 8 mg/dl (7-24); CHLORIDE 105 mmol/L (98-107); CREATININE 0.69 mg/dL (0.55-1.02); POTASSIUM 3.8 mmol/L (3.5-5.1); SGOT/AST 14 IU/L (3-35); SGPT/ALT 20 U/L (12-78); SODIUM 137 mmol/L (136-145)
[2021-04-05 10:58] LABS: ALKALINE PHOSPHATASE 63 U/L (45-117)
== END | disposition home or self-care (01) ==
LOC: RESCLI 01:35
PROVIDERS: ATTEND Student in an Organized Health Care Education/Training Program
DX: E03.9 Hypothyroidism, unspecified (principal); I10 Essential (primary) hypertension; G89.29 Other chronic pain; J45.909 Unspecified asthma, uncomplicated; N95.1 Menopausal and female climacteric states; R30.0 Dysuria; R10.11 Right upper quadrant pain; M85.859 Other specified disorders of bone density and structure, unspecified thigh; Z90.49 Acquired absence of other specified parts of digestive tract; Z79.899 Other long term (current) drug therapy; Z98.890 Other specified postprocedural states; Z72.0 Tobacco use

== ENCOUNTER → 2021-04-08 | Outpatient (CLI) | payer MEDICARE | END | disposition home or self-care (01) | LOC: US 00:15 | PROVIDERS: ATTEND Internal Medicine | DX: R10.11 Right upper quadrant pain (principal) ==

== ENCOUNTER → 2021-09-20 | Outpatient (CLI) | payer MEDICARE | END | disposition home or self-care (01) | LOC: RESCLI 01:22 | PROVIDERS: ATTEND Family Medicine | DX: G89.29 Other chronic pain (principal); N94.4 Primary dysmenorrhea; J45.909 Unspecified asthma, uncomplicated; I10 Essential (primary) hypertension; E03.9 Hypothyroidism, unspecified; R32 Unspecified urinary incontinence; N95.1 Menopausal and female climacteric states; Z98.890 Other specified postprocedural states; M85.859 Other specified disorders of bone density and structure, unspecified thigh; Z79.899 Other long term (current) drug therapy ==

== ENCOUNTER → 2022-03-27 | Outpatient (CLI) | payer MEDICARE ==
[2022-03-27 10:17] LABS: BASO # 0.1 10*3/uL (0.0-0.1); BASO % 1.3 % (0.0-1.0); EOS # 0.3 10*3/uL (0.0-0.4); EOS % 3.9 % (1.0-4.0); HEMATOCRIT 42.8 % (37.0-47.0); LYMPH # 2.9 10*3/uL (1.3-4.4); LYMPH % 33.5 % (27.0-41.0); MEAN CELL VOLUME 93.4 fl (81.0-99.0); MEAN CORPUSCULAR HGB 31.9 pg (27.0-31.0); MEAN CORPUSCULAR HGB CONC 34.1 g/dl (33.0-37.0); MEAN PLATELET VOLUME 9.9 fl (9.6-12.3); MONO # 0.7 10*3/uL (0.1-1.0); MONO % 8.5 % (3.0-9.0); NEUT # 4.5 10*3/uL (2.3-7.9); PLATELET COUNT AUTOMATED 288 10*3/uL (130-400); RED BLOOD COUNT 4.58 10*6/uL (4.10-5.10); RED CELL DISTRI WIDTH 12.9 % (0-14.5); WHITE BLOOD COUNT 8.6 10*3/uL (4.8-10.8)
[2022-03-27 10:39] LABS: BUN 9 mg/dl (7-24); CHLORIDE 103 mmol/L (98-107); CHOLESTEROL 179 mg/dL (<200); CREATININE 0.78 mg/dL (0.55-1.02); POTASSIUM 4.1 mmol/L (3.5-5.1); SGOT/AST 12 IU/L (3-35); SGPT/ALT 19 U/L (12-78); SODIUM 137 mmol/L (136-145); TRIGLYCERIDES 60 mg/dl (<150)
[2022-03-27 10:40] LABS: ALKALINE PHOSPHATASE 63 U/L (45-117); LDL CHOLESTEROL 68 mg/dL (9-159)
== END | disposition home or self-care (01) ==
LOC: RESCLI 03:54
PROVIDERS: Student in an Organized Health Care Education/Training Program; ATTEND Internal Medicine
DX: I10 Essential (primary) hypertension (principal); E03.9 Hypothyroidism, unspecified; E56.9 Vitamin deficiency, unspecified; J45.909 Unspecified asthma, uncomplicated; M85.859 Other specified disorders of bone density and structure, unspecified thigh; Z12.39 Encounter for other screening for malignant neoplasm of breast; Z98.890 Other specified postprocedural states; F17.200 Nicotine dependence, unspecified, uncomplicated; Z72.89 Other problems related to lifestyle; K57.92 Diverticulitis of intestine, part unspecified, without perforation or abscess without bleeding; Z79.899 Other long term (current) drug therapy

== ENCOUNTER → 2022-04-17 | Outpatient (CLI) | payer MEDICARE | END | disposition home or self-care (01) | LOC: MAMMO 00:32 | PROVIDERS: ATTEND Internal Medicine | DX: Z12.31 Encounter for screening mammogram for malignant neoplasm of breast (principal); N64.89 Other specified disorders of breast ==

== ENCOUNTER → 2022-07-10 | Outpatient (CLI) | payer MEDICARE | END | disposition home or self-care (01) | LOC: RESCLI 13:08 | PROVIDERS: ATTEND Student in an Organized Health Care Education/Training Program | DX: R05.9 Cough, unspecified (principal); J45.909 Unspecified asthma, uncomplicated; R09.81 Nasal congestion; F17.200 Nicotine dependence, unspecified, uncomplicated; Z20.822 Contact with and (suspected) exposure to COVID-19; Z98.890 Other specified postprocedural states; F10.90 Alcohol use, unspecified, uncomplicated; E03.9 Hypothyroidism, unspecified; Z79.899 Other long term (current) drug therapy ==

== ENCOUNTER → 2022-08-29 | Outpatient (CLI) | payer MEDICARE ==
[2022-08-29 09:48] LABS: BASO # 0.1 10*3/uL (0.0-0.1); BASO % 1.4 % (0.0-1.0); EOS # 0.2 10*3/uL (0.0-0.4); EOS % 2.5 % (1.0-4.0); HEMATOCRIT 42.1 % (37.0-47.0); LYMPH # 2.6 10*3/uL (1.3-4.4); LYMPH % 32.1 % (27.0-41.0); MEAN CELL VOLUME 94.2 fl (81.0-99.0); MEAN CORPUSCULAR HGB 31.8 pg (27.0-31.0); MEAN CORPUSCULAR HGB CONC 33.7 g/dl (33.0-37.0); MEAN PLATELET VOLUME 10.8 fl (9.6-12.3); MONO # 0.7 10*3/uL (0.1-1.0); MONO % 9.1 % (3.0-9.0); NEUT # 4.3 10*3/uL (2.3-7.9); NEUT % 54.3 % (47.0-73.0); PLATELET COUNT AUTOMATED 313 10*3/uL (130-400); RED BLOOD COUNT 4.47 10*6/uL (4.10-5.10); RED CELL DISTRI WIDTH 12.9 % (0-14.5)
[2022-08-29 10:08] LABS: ALKALINE PHOSPHATASE 59 U/L (46-116); BUN 6 mg/dl (9-23); CHLORIDE 102 mmol/L (98-107); SGPT/ALT 11 U/L (10-49); TOTAL PROTEIN 7.6 gm/dL (6.0-8.0); URIC ACID 4.2 mg/dL (3.1-7.8)
== END | disposition home or self-care (01) ==
LOC: RESCLI 01:47
PROVIDERS: Student in an Organized Health Care Education/Training Program; ATTEND Family Medicine
DX: I10 Essential (primary) hypertension (principal); J45.909 Unspecified asthma, uncomplicated; G89.29 Other chronic pain; E03.9 Hypothyroidism, unspecified; N95.1 Menopausal and female climacteric states; R32 Unspecified urinary incontinence; M85.859 Other specified disorders of bone density and structure, unspecified thigh; M77.32 Calcaneal spur, left foot; M20.12 Hallux valgus (acquired), left foot; F17.200 Nicotine dependence, unspecified, uncomplicated; Z98.890 Other specified postprocedural states; Z72.89 Other problems related to lifestyle; Z79.899 Other long term (current) drug therapy

== ENCOUNTER → 2022-09-25 | Outpatient (CLI) | payer MEDICARE | END | disposition home or self-care (01) | LOC: RESCLI 02:15 | PROVIDERS: ATTEND Internal Medicine | DX: B02.9 Zoster without complications (principal); R05.9 Cough, unspecified; R09.81 Nasal congestion; E56.9 Vitamin deficiency, unspecified; I10 Essential (primary) hypertension; F17.210 Nicotine dependence, cigarettes, uncomplicated; E03.9 Hypothyroidism, unspecified; J45.909 Unspecified asthma, uncomplicated; Z98.890 Other specified postprocedural states; F10.90 Alcohol use, unspecified, uncomplicated; Z79.899 Other long term (current) drug therapy ==

== ENCOUNTER → 2022-10-24 | Outpatient (CLI) | payer MEDICARE | END | disposition home or self-care (01) | LOC: RESCLI 13:43 | PROVIDERS: ATTEND Internal Medicine | DX: M19.071 Primary osteoarthritis, right ankle and foot (principal); F17.210 Nicotine dependence, cigarettes, uncomplicated; F10.90 Alcohol use, unspecified, uncomplicated; Z79.899 Other long term (current) drug therapy; Z98.890 Other specified postprocedural states ==

== ENCOUNTER → 2022-10-25 | Outpatient (CLI) | payer MEDICARE | END | disposition home or self-care (01) | LOC: US 10:30 | PROVIDERS: ATTEND Internal Medicine | DX: M79.671 Pain in right foot (principal) ==

== ENCOUNTER → 2023-01-08 | Outpatient (CLI) | payer MEDICARE ==
[~2023-01-08] MED LIST changes: +AMLODIPINE BESYL5 MG PO; +SYMB80 INH; +UNITHROID25 MCG PO
== END | disposition home or self-care (01) ==
LOC: RESCLI 10:56
PROVIDERS: ATTEND Internal Medicine
DX: I24.9 Acute ischemic heart disease, unspecified (principal); Z98.890 Other specified postprocedural states; F10.90 Alcohol use, unspecified, uncomplicated; F17.200 Nicotine dependence, unspecified, uncomplicated; Z79.899 Other long term (current) drug therapy

== ENCOUNTER → 2023-01-18 | Outpatient (CLI) | payer MEDICARE, SELFPAY | END | disposition home or self-care (01) | LOC: RESCLI 08:09 | PROVIDERS: ATTEND Internal Medicine | DX: I10 Essential (primary) hypertension (principal); E03.9 Hypothyroidism, unspecified; J45.909 Unspecified asthma, uncomplicated; I25.10 Atherosclerotic heart disease of native coronary artery without angina pectoris; K57.90 Diverticulosis of intestine, part unspecified, without perforation or abscess without bleeding; N95.1 Menopausal and female climacteric states; R32 Unspecified urinary incontinence; M85.859 Other specified disorders of bone density and structure, unspecified thigh; Z71.6 Tobacco abuse counseling; Z98.890 Other specified postprocedural states; F17.210 Nicotine dependence, cigarettes, uncomplicated; F10.90 Alcohol use, unspecified, uncomplicated; Z79.899 Other long term (current) drug therapy ==

== ENCOUNTER 2023-01-21 13:18 | Emergency (ER) | payer MEDICARE ==
[~2023-01-21] VITALS: Wt 63.5 kg
[2023-01-21 13:52] LABS: BASO # 0.1 10*3/uL (0.0-0.1); BASO % 1.2 % (0.0-1.0); EOS # 0.2 10*3/uL (0.0-0.4); EOS % 2.5 % (1.0-4.0); HEMATOCRIT 36.5 % (37.0-47.0); LYMPH # 2.5 10*3/uL (1.3-4.4); LYMPH % 32.7 % (27.0-41.0); MEAN CELL VOLUME 91.5 fl (81.0-99.0); MEAN CORPUSCULAR HGB 32.1 pg (27.0-31.0); MEAN CORPUSCULAR HGB CONC 35.1 g/dl (33.0-37.0); MEAN PLATELET VOLUME 10.5 fl (9.6-12.3); MONO # 0.6 10*3/uL (0.1-1.0); MONO % 8.2 % (3.0-9.0); NEUT # 4.3 10*3/uL (2.3-7.9); NEUT % 54.9 % (47.0-73.0); PLATELET COUNT AUTOMATED 274 10*3/uL (130-400); RED BLOOD COUNT 3.99 10*6/uL (4.10-5.10); RED CELL DISTRI WIDTH 12.3 % (0-14.5); WHITE BLOOD COUNT 7.7 10*3/uL (4.8-10.8)
[2023-01-21 14:18] LABS: ALKALINE PHOSPHATASE 50 U/L (46-116); CHLORIDE 100 mmol/L (98-107); LIPASE 34 U/L (12-53); POTASSIUM 3.7 mmol/L (3.4-5.1); SGPT/ALT 11 U/L (10-49); TOTAL PROTEIN 6.7 gm/dL (6.0-8.0)
[2023-01-21 14:19] LABS: BUN < 5 mg/dl (9-23)
== END 2023-01-21 17:57 | disposition home or self-care (01) ==
LOC: ED 13:18
PROVIDERS: Internal Medicine
DX: R55 Syncope and collapse (principal); F17.200 Nicotine dependence, unspecified, uncomplicated; Z95.5 Presence of coronary angioplasty implant and graft; Z79.899 Other long term (current) drug therapy; Z90.49 Acquired absence of other specified parts of digestive tract

== ENCOUNTER 2023-02-19 10:14 | Emergency (ER) | payer MEDICARE ==
[~2023-02-19] VITALS: Ht 167.6 cm; Wt 57.2 kg
[2023-02-19 11:11] LABS: HEMATOCRIT 35.8 % (37.0-47.0); MEAN CELL VOLUME 89.1 fl (81.0-99.0); MEAN CORPUSCULAR HGB 31.1 pg (27.0-31.0); MEAN CORPUSCULAR HGB CONC 34.9 g/dl (33.0-37.0); MEAN PLATELET VOLUME 10.1 fl (9.6-12.3); PLATELET COUNT AUTOMATED 501 10*3/uL (130-400); RED BLOOD COUNT 4.02 10*6/uL (4.10-5.10); RED CELL DISTRI WIDTH 12.2 % (0-14.5); WHITE BLOOD COUNT 27.4 10*3/uL (4.8-10.8)
[2023-02-19 11:14] LABS: MANUAL DIFF REFLEX YES
[2023-02-19 11:23] LABS: ACT PARTIAL THROMBO TIME 31.5 SECONDS (20.0-32.1); INTERNATIONAL NORM RATIO 1.1 (2.0-3.5)
[2023-02-19 11:32] LABS: BURR CELLS FEW; OVALOCYTES FEW; TOTAL CELLS COUNTED 100 #CELLS; TOXIC GRANULATION SLIGHT
[2023-02-19 11:33] LABS: PLATELET SUFFICIENCY HIGH (NORMAL); POLYCHROMASIA SLIGHT
[2023-02-19 11:42] LABS: ALKALINE PHOSPHATASE 122 U/L (46-116); BUN 9 mg/dl (9-23); CHLORIDE 97 mmol/L (98-107); LIPASE 32 U/L (12-53); POTASSIUM 3.3 mmol/L (3.4-5.1); SGPT/ALT 99 U/L (10-49); TOTAL PROTEIN 7.5 gm/dL (6.0-8.0)
[2023-02-19] MEDS ORDERED: ESTRACE 0.01%42.5 GM V (11:45)
[2023-02-19] MEDS ORDERED: METOPROLOL SUCC25 M2 PO (11:46)
[2023-02-19] MEDS ORDERED: CLOPIDOGREL75 MG PO (11:46)
[2023-02-19] MEDS ORDERED: ROSUVASTATIN CA40 MG PO (11:47)
[2023-02-19] MEDS ORDERED: ASPIRIN ADULT L81 M2 PO (11:48)
[2023-02-19 15:04] LABS: BILIRUBIN Negative (Negative); BLOOD 1+ (Negative); CLARITY Clear (Clear); COLOR Yellow (Yellow); GLUCOSE Negative (Negative); KETONE 1+ (Negative); LEUKO ESTERASE Negative (Negative); NITRITE Negative (Negative); PH 6.5 (4.5-8.0); SPECIFIC GRAVITY >= 1.030 (1.001-1.030)
[2023-02-19 15:21] LABS: BACTERIA 2+
[2023-02-20 10:32] LABS: HEMATOCRIT 37.9 % (37.0-47.0); MEAN CELL VOLUME 88.6 fl (81.0-99.0); MEAN CORPUSCULAR HGB 30.6 pg (27.0-31.0); MEAN CORPUSCULAR HGB CONC 34.6 g/dl (33.0-37.0); MEAN PLATELET VOLUME 9.9 fl (9.6-12.3); PLATELET COUNT AUTOMATED 555 10*3/uL (130-400); RED BLOOD COUNT 4.28 10*6/uL (4.10-5.10); RED CELL DISTRI WIDTH 12.4 % (0-14.5); WHITE BLOOD COUNT 8.9 10*3/uL (4.8-10.8)
[2023-02-20 10:42] LABS: ACT PARTIAL THROMBO TIME 30.5 SECONDS (20.0-32.1); INTERNATIONAL NORM RATIO 1.3 (2.0-3.5)
[2023-02-20 10:43] LABS: MANUAL DIFF REFLEX YES
[2023-02-20 10:58] LABS: TOTAL CELLS COUNTED 100 #CELLS
[2023-02-20 10:59] LABS: BURR CELLS MODERATE; OVALOCYTES FEW; PLATELET SUFFICIENCY HIGH (NORMAL); POLYCHROMASIA SLIGHT; ROULEAUX SLIGHT; TOXIC GRANULATION SLIGHT
[2023-02-20 11:07] LABS: ALKALINE PHOSPHATASE 121 U/L (46-116); BUN 13 mg/dl (9-23); CHLORIDE 105 mmol/L (98-107); LIPASE 24 U/L (12-53); POTASSIUM 3.1 mmol/L (3.4-5.1); SGPT/ALT 122 U/L (10-49); TOTAL PROTEIN 6.7 gm/dL (6.0-8.0)
== END 2023-02-20 13:32 | disposition short-term general hospital (02) ==
LOC: ED 10:14
PROVIDERS: Emergency Medicine
DX: A41.9 Sepsis, unspecified organism (principal); K57.80 Diverticulitis of intestine, part unspecified, with perforation and abscess without bleeding; F17.200 Nicotine dependence, unspecified, uncomplicated; Z79.899 Other long term (current) drug therapy; Z79.82 Long term (current) use of aspirin; Z90.49 Acquired absence of other specified parts of digestive tract; Z87.42 Personal history of other diseases of the female genital tract; Z98.51 Tubal ligation status

== ENCOUNTER → 2023-04-16 | Outpatient (CLI) | payer MEDICARE ==
[~2023-04-16] MED LIST changes: +ACETAMINOPHEN325 M2 PO; +ASPIRIN ADULT L81 M2 PO; +CLOPIDOGREL75 MG PO; +DULCOLAX10 M1 R; +ESTRACE 0.01%42.5 GM V; +FLEET ENEMA 13133 ML R; +FLUTICASONE-SA1 EAC5 INH; +LEVOTHYROXINE50 MC1 PO; +LIPITOR80 MG PO; +METOPROLOL SUCC25 M2 PO; +MILK OF MA2400 MG/11 PO; +MULTIPLE VITAM1 EAC2 PO; +Magnesium Oxid400 MG PO; +NATURE'S BLEND F1 MG PO; +NATURE'S BLEND100 M2 PO; +PROVENTIL HFA6.7 GM INH; +ROSUVASTATIN CA40 MG PO
[2023-04-16 11:26] LABS: BASO # 0.1 10*3/uL (0.0-0.1); BASO % 0.8 % (0.0-1.0); EOS # 0.4 10*3/uL (0.0-0.4); EOS % 3.3 % (1.0-4.0); HEMATOCRIT 30.2 % (37.0-47.0); LYMPH # 3.2 10*3/uL (1.3-4.4); LYMPH % 29.7 % (27.0-41.0); MEAN CELL VOLUME 90.7 fl (81.0-99.0); MEAN CORPUSCULAR HGB 27.9 pg (27.0-31.0); MEAN CORPUSCULAR HGB CONC 30.8 g/dl (33.0-37.0); MEAN PLATELET VOLUME 10.5 fl (9.6-12.3); MONO # 0.8 10*3/uL (0.1-1.0); MONO % 7.9 % (3.0-9.0); NEUT # 6.1 10*3/uL (2.3-7.9); NEUT % 57.5 % (47.0-73.0); PLATELET COUNT AUTOMATED 514 10*3/uL (130-400); RED BLOOD COUNT 3.33 10*6/uL (4.10-5.10); RED CELL DISTRI WIDTH 15.1 % (0-14.5); WHITE BLOOD COUNT 10.6 10*3/uL (4.8-10.8)
== END | disposition home or self-care (01) ==
LOC: RESCLI 00:35
PROVIDERS: Student in an Organized Health Care Education/Training Program; ATTEND Family Medicine
DX: F41.1 Generalized anxiety disorder (principal); D50.9 Iron deficiency anemia, unspecified; I25.10 Atherosclerotic heart disease of native coronary artery without angina pectoris; N95.1 Menopausal and female climacteric states; E03.9 Hypothyroidism, unspecified; F10.90 Alcohol use, unspecified, uncomplicated; F17.210 Nicotine dependence, cigarettes, uncomplicated; Z98.890 Other specified postprocedural states; Z79.82 Long term (current) use of aspirin; Z79.02 Long term (current) use of antithrombotics/antiplatelets; Z79.899 Other long term (current) drug therapy

== ENCOUNTER → 2023-05-28 | Outpatient (CLI) | payer MEDICARE | END | disposition home or self-care (01) | LOC: RESCLI 02:48 | PROVIDERS: ATTEND Family Medicine | DX: F41.1 Generalized anxiety disorder (principal); I25.10 Atherosclerotic heart disease of native coronary artery without angina pectoris; N95.1 Menopausal and female climacteric states; J45.909 Unspecified asthma, uncomplicated; E03.9 Hypothyroidism, unspecified; Z98.890 Other specified postprocedural states; F17.210 Nicotine dependence, cigarettes, uncomplicated; F10.90 Alcohol use, unspecified, uncomplicated; Z79.82 Long term (current) use of aspirin; Z79.899 Other long term (current) drug therapy ==

== ENCOUNTER → 2023-06-18 | Outpatient (CLI) | payer MEDICARE | END | disposition home or self-care (01) | LOC: RESCLI 01:49 | PROVIDERS: ATTEND Internal Medicine | DX: F41.1 Generalized anxiety disorder (principal); F32.9 Major depressive disorder, single episode, unspecified; Z00.00 Encounter for general adult medical examination without abnormal findings; E03.9 Hypothyroidism, unspecified; J45.909 Unspecified asthma, uncomplicated; I25.10 Atherosclerotic heart disease of native coronary artery without angina pectoris; N95.1 Menopausal and female climacteric states; Z86.79 Personal history of other diseases of the circulatory system; Z79.82 Long term (current) use of aspirin; Z79.899 Other long term (current) drug therapy ==

== ENCOUNTER → 2023-06-20 | Outpatient (CLI) | payer MEDICARE | LOC: LAB 10:19 | PROVIDERS: ATTEND Internal Medicine | DX: E03.9 Hypothyroidism, unspecified (principal) ==

== ENCOUNTER → 2023-08-13 | Outpatient (CLI) | payer MEDICARE ==
[2023-08-13 11:57] LABS: BASO # 0.1 10*3/uL (0.0-0.1); BASO % 0.4 % (0.0-1.0); EOS # 0.1 10*3/uL (0.0-0.4); EOS % 0.9 % (1.0-4.0); HEMATOCRIT 24.3 % (37.0-47.0); LYMPH # 3.3 10*3/uL (1.3-4.4); LYMPH % 22.4 % (27.0-41.0); MEAN CELL VOLUME 84.7 fl (81.0-99.0); MEAN CORPUSCULAR HGB 25.1 pg (27.0-31.0); MEAN CORPUSCULAR HGB CONC 29.6 g/dl (33.0-37.0); MEAN PLATELET VOLUME 9.8 fl (9.6-12.3); MONO # 1.2 10*3/uL (0.1-1.0); MONO % 8.4 % (3.0-9.0); NEUT # 9.9 10*3/uL (2.3-7.9); NEUT % 67.2 % (47.0-73.0); PLATELET COUNT AUTOMATED 559 10*3/uL (130-400); RED BLOOD COUNT 2.87 10*6/uL (4.10-5.10); RED CELL DISTRI WIDTH 16.4 % (0-14.5); WHITE BLOOD COUNT 14.8 10*3/uL (4.8-10.8)
[2023-08-13 12:30] LABS: ALKALINE PHOSPHATASE 78 U/L (46-116); BUN 12 mg/dl (9-23); CHLORIDE 102 mmol/L (98-107); SGPT/ALT 23 U/L (5-49); TOTAL PROTEIN 7.7 gm/dL (6.0-8.0)
[2023-08-13 12:48] LABS: FREE T4 1.04 ng/dl (0.89-1.76)
== END | disposition home or self-care (01) ==
LOC: RESCLI 10:25
PROVIDERS: Student in an Organized Health Care Education/Training Program; ATTEND Internal Medicine
DX: R53.83 Other fatigue (principal); K57.30 Diverticulosis of large intestine without perforation or abscess without bleeding; E03.9 Hypothyroidism, unspecified; J45.909 Unspecified asthma, uncomplicated; F17.210 Nicotine dependence, cigarettes, uncomplicated; I25.10 Atherosclerotic heart disease of native coronary artery without angina pectoris; F41.1 Generalized anxiety disorder; N95.1 Menopausal and female climacteric states; Z83.3 Family history of diabetes mellitus; Z79.899 Other long term (current) drug therapy; Z86.79 Personal history of other diseases of the circulatory system; Z98.890 Other specified postprocedural states; Z79.82 Long term (current) use of aspirin

== ENCOUNTER → 2023-08-16 | Outpatient (CLI) | payer MEDICARE | END | disposition home or self-care (01) | LOC: LAB 09:37 | PROVIDERS: ATTEND Family Medicine | DX: D50.9 Iron deficiency anemia, unspecified (principal) ==

== ENCOUNTER → 2023-10-24 | Outpatient (CLI) | payer MEDICARE ==
[2023-10-24 10:06] LABS: BASO # 0.1 10*3/uL (0.0-0.1); BASO % 1.1 % (0.0-1.0); EOS # 0.2 10*3/uL (0.0-0.4); EOS % 2.4 % (1.0-4.0); HEMATOCRIT 36.3 % (37.0-47.0); LYMPH # 2.7 10*3/uL (1.3-4.4); LYMPH % 37.9 % (27.0-41.0); MEAN CORPUSCULAR HGB 27.5 pg (27.0-31.0); MEAN CORPUSCULAR HGB CONC 32.8 g/dl (33.0-37.0); MEAN PLATELET VOLUME 10.6 fl (9.6-12.3); MONO # 0.6 10*3/uL (0.1-1.0); NEUT # 3.5 10*3/uL (2.3-7.9); NEUT % 49.2 % (47.0-73.0); PLATELET COUNT AUTOMATED 307 10*3/uL (130-400); RED BLOOD COUNT 4.32 10*6/uL (4.10-5.10); RED CELL DISTRI WIDTH 20.2 % (0-14.5)
== END | disposition home or self-care (01) ==
LOC: RESCLI 02:37
PROVIDERS: Internal Medicine; ATTEND Student in an Organized Health Care Education/Training Program
DX: D50.9 Iron deficiency anemia, unspecified (principal); I25.10 Atherosclerotic heart disease of native coronary artery without angina pectoris; J45.909 Unspecified asthma, uncomplicated; N95.1 Menopausal and female climacteric states; E03.9 Hypothyroidism, unspecified; F41.1 Generalized anxiety disorder; R55 Syncope and collapse; Z88.8 Allergy status to other drugs, medicaments and biological substances; Z87.891 Personal history of nicotine dependence; Z83.3 Family history of diabetes mellitus; Z79.82 Long term (current) use of aspirin; Z79.899 Other long term (current) drug therapy

== ENCOUNTER → 2024-01-28 | Outpatient (CLI) | payer MEDICARE | END | disposition home or self-care (01) | LOC: RESCLI 02:51 | PROVIDERS: Student in an Organized Health Care Education/Training Program; ATTEND Student in an Organized Health Care Education/Training Program | DX: I25.10 Atherosclerotic heart disease of native coronary artery without angina pectoris (principal); D50.9 Iron deficiency anemia, unspecified; J45.909 Unspecified asthma, uncomplicated; N95.1 Menopausal and female climacteric states; E03.9 Hypothyroidism, unspecified; F41.1 Generalized anxiety disorder; Z98.890 Other specified postprocedural states; F10.90 Alcohol use, unspecified, uncomplicated; Z87.891 Personal history of nicotine dependence; Z79.82 Long term (current) use of aspirin; Z79.899 Other long term (current) drug therapy ==

== ENCOUNTER → 2024-03-17 | Outpatient (CLI) | payer MEDICARE | END | disposition home or self-care (01) | LOC: MAMMO 01:48 | PROVIDERS: ATTEND Internal Medicine | DX: Z12.31 Encounter for screening mammogram for malignant neoplasm of breast (principal) ==

== ENCOUNTER → 2024-07-21 | Outpatient (CLI) | payer MEDICARE | END | disposition home or self-care (01) | LOC: LAB 01:46 → RESCLI 01:46 → RAD 01:46 → RESCLI 03:52 | PROVIDERS: ATTEND Internal Medicine | DX: J98.11 Atelectasis (principal); M47.814 Spondylosis without myelopathy or radiculopathy, thoracic region; R05.9 Cough, unspecified ==

== ENCOUNTER → 2024-08-25 | Outpatient (CLI) | payer MEDICARE ==
[2024-08-25 09:40] LABS: ALKALINE PHOSPHATASE 57 U/L (46-116); BUN 9 mg/dl (9-23); CHLORIDE 104 mmol/L (98-107); SGPT/ALT 11 U/L (5-49); TOTAL PROTEIN 7.6 gm/dL (6.0-8.0)
== END | disposition home or self-care (01) ==
LOC: LAB 03:12 → RESCLI 03:12
PROVIDERS: ATTEND Internal Medicine
DX: R07.89 Other chest pain (principal); I25.10 Atherosclerotic heart disease of native coronary artery without angina pectoris; E03.9 Hypothyroidism, unspecified; D50.9 Iron deficiency anemia, unspecified; N95.1 Menopausal and female climacteric states; J45.909 Unspecified asthma, uncomplicated; Z79.899 Other long term (current) drug therapy; Z79.82 Long term (current) use of aspirin; Z98.890 Other specified postprocedural states

== ENCOUNTER → 2025-01-22 | Outpatient (CLI) | payer MEDICARE ==
[2025-01-22 09:52] LABS: BASO # 0.1 10*3/uL (0.0-0.1); BASO % 1.5 % (0.0-1.0); EOS # 0.1 10*3/uL (0.0-0.4); EOS % 1.5 % (1.0-4.0); MEAN CELL VOLUME 94.0 fl (81.0-99.0); MEAN CORPUSCULAR HGB 31.0 pg (27.0-31.0); MEAN PLATELET VOLUME 10.6 fl (9.6-12.3); MONO # 0.8 10*3/uL (0.1-1.0); MONO % 9.8 % (3.0-9.0); NEUT # 3.9 10*3/uL (2.3-7.9); NEUT % 49.5 % (47.0-73.0); NUCLEATED RED BLOOD CELL 0.0 % (0.0-0.0); NUCLEATED RED BLOOD CELL 0.0 10*3/uL (0.0-0.0); PLATELET COUNT AUTOMATED 303 10*3/uL (130-400); RED CELL DISTRI WIDTH 13.4 % (0-14.5)
[2025-01-22 10:20] LABS: BUN 8 mg/dl (9-23); LDL CHOLESTEROL 91 mg/dL (9-159); SGPT/ALT 7 U/L (5-49)
[2025-01-22 10:37] LABS: FREE T4 0.96 ng/dl (0.89-1.76)
== END | disposition home or self-care (01) ==
LOC: RESCLI 01:40
PROVIDERS: ATTEND Internal Medicine
DX: I25.10 Atherosclerotic heart disease of native coronary artery without angina pectoris (principal); D50.9 Iron deficiency anemia, unspecified; E03.9 Hypothyroidism, unspecified; N95.1 Menopausal and female climacteric states; J45.909 Unspecified asthma, uncomplicated; Z79.899 Other long term (current) drug therapy

== ENCOUNTER → 2025-05-05 | Outpatient (CLI) | payer MEDICARE | END | disposition home or self-care (01) | LOC: RESCLI 02:27 | PROVIDERS: ATTEND Internal Medicine | DX: J45.909 Unspecified asthma, uncomplicated (principal); E03.9 Hypothyroidism, unspecified; I25.10 Atherosclerotic heart disease of native coronary artery without angina pectoris; Z79.899 Other long term (current) drug therapy ==